=== PATIENT | male | born 1935 | race Hispanic/Latino ===

== ENCOUNTER 2020-11-12 09:22 | Outpatient (CLI) | payer MEDICARE, BC | END 2020-11-12 09:23 | disposition home or self-care (01) | LOC: CSHRAD 09:22 | PROVIDERS: ATTEND Family Medicine | DX: G89.4 Chronic pain syndrome (principal); M47.816 Spondylosis without myelopathy or radiculopathy, lumbar region; M43.17 Spondylolisthesis, lumbosacral region | CPT/HCPCS: 72110 ==

== ENCOUNTER 2022-05-08 13:16 | Emergency (ER) | payer MEDICARE, BC ==
[2022-05-08 14:16] LABS: #Basophils 0.1 10x3/uL (0.0-0.2); #Eosinphils 0.5 10x3/uL (0.0-0.5); #Monocytes 0.8 10x3/uL (0.0-1.1); #Neutrophils 7.5 10x3/uL (1.5-8.4); %Basophils 1.1 % (0.0-2.0); %Eosinophils 4.5 % (0.0-6.0); %Lymphocytes 14.6 % (18.0-47.0); %Neutrophils 71.4 % (40.0-75.0); Hemoglobin 13.1 g/dL (13.5-17.5); Mean Corpuscular HGB CONC 33.4 g/dL (32.0-36.0); Mean Corpuscular Hemoglobin 28.3 pg (27.0-33.0); Mean Corpuscular Volume 84.7 fl (81.2-95.1); Mean Platelet Volume 10.7 fl (7.4-10.4); Platelet Count 207 10x3/uL (150-450); RBC Distribution Width 14.3 % (11.5-14.5); Red Blood Cell (RBC) Count 4.63 10x6/uL (4.32-5.72); White Blood Cell (WBC) Count 10.5 10x3/uL (3.5-10.5)
[2022-05-08 14:28] LABS: ALT (SGPT) 16 U/L (8-55); AST (SGOT) 20 U/L (5-34); Albumin 4.2 g/dL (3.4-4.8); Alkaline Phosphatase 64 U/L (40-110); Anion Gap 14 mmol/L (10-20); BUN (Urea Nitrogen) 19 mg/dL (8.4-25.7); Bilirubin, Total 0.7 mg/dL (0.2-1.2); Calc. Creatinine Clearance 0 mL/min (70-130); Calcium 9.3 mg/dL (7.8-10.44); Carbon Dioxide 25 mmol/L (23-31); Chloride 104 mmol/L (98-107); Estimated GFR 64; Glucose 91 mg/dL (83-110); Potassium 4.2 mmol/L (3.5-5.1); Protein, Total 6.2 g/dL (5.8-8.1); Sodium 139 mmol/L (136-145)
== END 2022-05-08 15:25 | disposition home or self-care (01) ==
LOC: CSHERS 13:16
DX: R07.89 Other chest pain (principal)
CPT/HCPCS: 71045; 80053; 84484; 85025; 93005

== ENCOUNTER 2023-11-15 14:11 | Emergency (ER) | payer MEDICARE ==
[2023-11-15] MEDS ORDERED: Lidocaine 1% w/Epinephrine 1:200K 30 ML VIAL ONE (14:50)
[2023-11-15] MEDS ORDERED: Boostrix 0.5 ML (Tdap) VIAL (>/=7 yrs of age) ONE (15:09)
[2023-11-15] MEDS ORDERED: Bacitracin 1 PK ONE (15:18)
== END 2023-11-15 15:09 | disposition home or self-care (01) ==
LOC: CSHERS 14:11
DX: S61.411A Laceration without foreign body of right hand, initial encounter (principal); I10 Essential (primary) hypertension; E11.9 Type 2 diabetes mellitus without complications; Z23 Encounter for immunization; X58.XXXA Exposure to other specified factors, initial encounter
CPT/HCPCS: 12001; 90471; 90715

== ENCOUNTER 2023-11-23 07:47 | Emergency (ER) | payer MEDICARE | END 2023-11-23 08:12 | disposition home or self-care (01) | LOC: CSHERS 07:47 | DX: S61.411D Laceration without foreign body of right hand, subsequent encounter (principal); Z48.02 Encounter for removal of sutures; E11.9 Type 2 diabetes mellitus without complications; I10 Essential (primary) hypertension; X58.XXXD Exposure to other specified factors, subsequent encounter ==